=== PATIENT | male | born 1980 | race Caucasian/White ===

== ENCOUNTER 2019-10-23 12:18 | Emergency (ER) | payer OTHER, SELFPAY ==
[2019-10-23 12:28] VITALS: BP 147/102; PULSE 99; RESP 18; TEMP 37.5; O2SAT 98
--- NOTE | 2019-10-23 12:45 | ED.LOWEXIN ---
HPI - Extremity Injury (Lower) General Chief Complaint: Extremity Problem,Nontraumatic Stated Complaint: right ankle/foot pain Time Seen by Provider: 10/23/19 12:48 Source: patient and RN notes reviewed Mode of arrival: ambulatory Limitations: no limitations History of Present Illness HPI Narrative: 39-year-old male presents with concern for right dorsal foot and ankle pain, redness, warmth, tenderness without injury. Reports symptoms started 1 week ago. He has been using ibuprofen with little relief. Reports history of gout in the ankle. MD complaint: other (Ankle pain) Related Data Home Medications Medication Instructions Recorded Confirmed cholecalciferol (vitamin D3) 25 1,000 unit PO DAILY 04/26/19 mcg (1,000 unit) capsule fluticasone propionate 50 1 spray NASAL DAILY 04/26/19 mcg/actuation nasal spray,suspension irbesartan 150 mg tablet 150 mg PO DAILY 04/26/19 vilazodone 40 mg tablet 40 mg PO DAILY 04/26/19 Allergies Allergy/AdvReac Type Severity Reaction Status Date / Time levofloxacin Allergy Unknown Verified 02/10/18 15:50 Penicillins Allergy Unknown Difficulty Verified 03/02/19 13:53 breathing Sulfa (Sulfonamide Allergy Unknown Difficulty Verified 03/02/19 13:52 Antibiotics) breathing Review of Systems Review of Systems: Narrative: CONSTITUTIONAL: Denies malaise, chills, sweats, or fever. CARDIOVASCULAR: Denies chest pain, palpitations RESPIRATORY: Denies dyspnea. GASTROINTESTINAL: Denies abdominal pain, nausea, vomiting, diarrhea SKIN: Reports right ankle, dorsal foot redness, warmth. Denies calf redness, tenderness, pain, warmth MUSCULOSKELETAL: Reports right dorsal foot and ankle pain NEUROLOGIC: Denies numbness, weakness. All systems reviewed & are unremarkable except as noted in HPI and below PMFSH Social History Social History Smoking status: Never smoker Smoking end date: 06/08/12 Alcohol intake: current Comments At time of signature, agree with nursing past medical, surgical, social and family history. There is no relevant family history pertinent to the presenting complaint Exam Narrative: Exam Narrative: GENERAL: Well-appearing, well-nourished, and in no acute distress. HEAD: Normocephalic, atraumatic. EYES: PERRLA, conjunctivae clear NECK: Supple. CHEST: Speaks in full sentences. No respiratory distress. HEART: Regular rate and rhythm. Normal and equal peripheral pulses. EXTREMITIES: Right ankle, foot, digits have normal strength and sensation, normal range of motion. 5/5 strength with dorsiflexion plantarflexion, digit flexion and extension. Mild ankle dorsal foot edema with warmth, erythema, mildly tender to palpation. Normal sensation with sensitivity to light touch and pain. No open wounds, no skin tenting, no devitalized tissue or atrophy, no trophic changes, no ecchymosis, no obvious deformity, alignment normal, no point tenderness, nearby joints and structures intact. Distal pulses palpable and equal bilaterally, skin warm, dry, pink. Capillary refill less than 3 seconds. SKIN: Warm, dry, no rash. NEURO: Alert and oriented x3. PSYCH: Normal mood and affect Course Course Emergency Course: Patient is aware of diagnosis, understands and agrees to treatment plan. Anticipatory guidance given. Patient agrees to follow-up as directed and is aware of reasons to seek care at the emergency department. Portions of this record may have been created with voice recognition software Vital Signs Vital signs: Vital Signs Temperature 99.5 F 10/23/19 12:28 Pulse Rate 99 10/23/19 12:28 Respiratory Rate 18 10/23/19 12:28 Blood Pressure 147/102 H 10/23/19 12:28 Pulse Oximetry 98 10/23/19 12:28 Temperature 99.5 F 10/23/19 12:28 Pulse Rate 99 10/23/19 12:28 Respiratory Rate 18 10/23/19 12:28 Blood Pressure 147/102 H 10/23/19 12:28 Pulse Oximetry 98 10/23/19 12:28 Reviewed. Pt has been instructed to follow up with his primary care
== END 2019-10-23 13:04 | disposition home or self-care (01) ==
PROVIDERS: Emergency Provider Nurse Practitioner; PCP Family Medicine
DX: M10.9 Gout, unspecified (principal); I10 Essential (primary) hypertension
CPT/HCPCS: 99213; G0463

== ENCOUNTER 2021-12-17 18:21 | Emergency (ER) | payer OTHER, SELFPAY ==
[2021-12-17 18:25] VITALS: BP 137/89; PULSE 110; RESP 20; TEMP 36.8; O2SAT 98
--- NOTE | 2021-12-17 18:33 | ED.BACK ---
HPI - Back Pain/Injury General Chief Complaint: Back Pain/Injury Stated Complaint: Low Back Pain Time Seen by Provider: 12/17/21 18:34 Source: patient and RN notes reviewed History of Present Illness HPI Narrative: Patient is a 41-year-old male who presents the urgent care with complaints of left low back pain radiating to the buttocks at times and around to the groin. Patient states is been ongoing for approximately 3 weeks and his primary care told him to wait it out and see how it goes . Patient states that Thursday he ran a fever and was concerned that it may be something to do with kidney stones or urinary. Patient reports of history of diverticulitis but states he has not had any issues with that recently and denies any diarrhea or constipation. Patient denies of abdominal pain. States that he has been taking ibuprofen and Tylenol. No other acute complaints. No acute distress noted. Patient aware of the plan of care. Some parts of this dictation were generated by voice recognition software and may contain typographical and/or grammatical inaccuracies. Related Data Home Medications Medication Instructions Recorded Confirmed cholecalciferol (vitamin D3) 25 1,000 unit PO DAILY 04/26/19 12/17/21 mcg (1,000 unit) capsule Allergies Allergy/AdvReac Type Severity Reaction Status Date / Time Penicillins Allergy Intermediate Difficulty Verified 12/17/21 18:43 breathing Sulfa (Sulfonamide Allergy Intermediate Difficulty Verified 12/17/21 18:43 Antibiotics) breathing Review of Systems Review of Systems: CONSTITUTIONAL: Reports a fever and chills that have since resolved EYES: Denies visual changes, redness, or discharge. ENT: Denies rhinorrhea, congestion, sore throat, or otalgia. CARDIOVASCULAR: Denies chest pain, palpitations, or edema. RESPIRATORY: Denies cough or dyspnea. GASTROINTESTINAL: Denies abdominal pain, nausea, vomiting, or diarrhea. GENITOURINARY: Denies dysuria or hematuria. SKIN: Denies rash or itching. MUSCULOSKELETAL: Reports of left low back pain radiating to the left groin NEUROLOGIC: Denies headache, numbness, or weakness. All other systems reviewed are negative, except as documented in HPI. [facility] Past Medical History Medical History (Updated 12/17/21 @ 19:01 by ZIYAD Ireland) Abnormal fasting glucose Fasting glucose 110 with hemoglobin A1c 5.3 on 03/05/2021. Glucose 92 on 12/02/2021. Alcoholism with alcohol dependence BMI 39.0-39.9,adult Encounter for prostate cancer screening Social History Social History Smoking status: Never smoker Tobacco type: e-cigarettes/vaping Smoking end date: 06/08/12 Alcohol intake: current Drinks per week: 6 Alcohol use details: beer Substance use: never Substance use type: does not use Comments At the time of my signature, I reviewed and agree with the nursing past medical, surgical, social, and family history. There is no relevant family history pertinent to the patient complaint. Exam Narrative: GENERAL: This is a well-nourished, well-developed patient, in no apparent distress. HEAD: normocephalic, atraumatic. EYES: PERRL. Sclera clear/white. Vision is grossly intact. EARS: External ears normal NOSE: External nose normal with no obvious nasal discharge, nares without redness, no rhinorrhea. THROAT: Mucous membranes moist NECK: Neck supple CARDIOVASCULAR: Regular rate and rhythm without murmurs, gallops, or rubs. RESPIRATORY: Clear to auscultation. Breath sounds equal bilaterally. No wheezes, rales, or rhonchi. GASTROINTESTINAL: Abdomen soft, non-tender, nondistended. Bowel sounds are active. SKIN: warm, intact with no suspicious lesions or rash, good texture and turgor. NEURO: awake, alert, and oriented to person, place and time. There were no obvious focal neurologic abnormalities. EXTREMITIES: No clubbing, cyanosis, or edema. BACK: Mild right lumbar tendernes
== END 2021-12-17 19:05 | disposition home or self-care (01) ==
PROVIDERS: Emergency Provider Nurse Practitioner Family; PCP Family Medicine
DX: M54.32 Sciatica, left side (principal); F17.200 Nicotine dependence, unspecified, uncomplicated; F17.290 Nicotine dependence, other tobacco product, uncomplicated
CPT/HCPCS: 81003; 99213; G0463

== ENCOUNTER 2022-12-03 11:06 | Emergency (ER) | payer OTHER, SELFPAY ==
[2022-12-03 11:15] VITALS: BP 169/92; PULSE 82; RESP 16; TEMP 36.5; O2SAT 99
--- NOTE | 2022-12-03 11:20 | ED.LOWEXIN ---
HPI - Extremity Injury (Lower) General Chief Complaint: Extremity Injury, Lower Stated Complaint: Right ankle injury Time Seen by Provider: 12/03/22 11:20 Source: patient Mode of arrival: ambulatory Limitations: no limitations History of Present Illness HPI Narrative: 42-year-old male presents with pain to right ankle for approximately 2 weeks. Reports that he was walking backwards while carrying furniture and twisted right ankle. States pain was not that bad after the fall. He continued to go up and downstairs and carry other objects for the next 2 days as he was helping family move. He states every day the pain to right ankle got progressively worse. He continues to have swelling. Worse when ambulatory. Taking [id number] medications to treat pain. Has not seen primary care physician for this complaint. All systems reviewed and negative except as noted above. Related Data Allergies Allergy/AdvReac Type Severity Reaction Status Date / Time Penicillins Allergy Intermediate Difficulty Verified 12/03/22 11:21 breathing Sulfa (Sulfonamide Allergy Intermediate Difficulty Verified 12/03/22 11:21 Antibiotics) breathing Review of Systems Review of Systems: CONSTITUTIONAL: Denies fever, chills, or sweats. EYES: Denies visual changes, redness, or discharge. ENT: Denies rhinorrhea, congestion, sore throat, or otalgia. CARDIOVASCULAR: Denies chest pain, palpitations, or edema. RESPIRATORY: Denies cough or dyspnea. GASTROINTESTINAL: Denies abdominal pain, nausea, vomiting, or diarrhea. GENITOURINARY: Denies dysuria or hematuria. SKIN: Denies rash or itching. MUSCULOSKELETAL: Denies back pain. Reports pain and swelling to right ankle. NEUROLOGIC: Denies headache, numbness, or weakness. PSYCHIATRIC: Denies anxiety or depression. All other systems reviewed are negative, except as documented in HPI. [facility] Past Medical History Medical History (Updated 12/03/22 @ 11:44 by Audrey Lamar NP) Abnormal fasting glucose Fasting glucose 110 with hemoglobin A1c 5.3 on 03/05/2021. Glucose 92 on 12/02/2021. Acute low back pain with left-sided sciatica (~11/2021) urgent care visit 12/17/2021. Alcoholism with alcohol dependence BMI 39.0-39.9,adult Encounter for prostate cancer screening PSA 0.34 on 03/05/2021. Obesity (BMI 30-39.9) Social History Social History (Updated 06/12/22 @ 14:24 by Berna Sandy MA) Smoking status: Former smoker ( quit smoking 06/08/2012. Vaping currently) Tobacco type: e-cigarettes/vaping Smoking end date: 06/08/12 Alcohol intake: current Drinks per week: 6 Alcohol use details: beer Substance use: never Substance use type: does not use Lack of Transportation: No Lack of Food: Never True Current Housing: I Have Housing Concerned About Future Housing: No Difficulty Paying Gas/Electric Bills: No Difficulty Paying for Meds: No Currently Unemployed: No Education: Bachelor's Degree Difficulty w/ Childcare or Family Care: No Comments At time of signature, agree with nursing past medical, surgical, social and family history. There is no relevant family history pertinent to the presenting complaint. Exam Narrative: GENERAL: This is a well-nourished, well-developed patient, in no apparent distress. HEAD: normocephalic, atraumatic. EYES: PERRL. Sclera clear/white. Vision is grossly intact. EARS: External ears normal NOSE: External nose normal NECK: Neck supple, non-tender without lymphadenopathy, masses or thyromegaly. CARDIOVASCULAR: Regular rate and rhythm without murmurs, gallops, or rubs. RESPIRATORY: Clear to auscultation. Breath sounds equal bilaterally. No wheezes, rales, or rhonchi. SKIN: warm, Dry, intact with no suspicious lesions or rash, good texture and turgor. NEURO: awake, alert, and oriented to person, place and time. There were no obvious focal neurologic abnormalities. EXTREMITIES: Tenderness to lateral and medial aspect of
== END 2022-12-03 11:45 | disposition home or self-care (01) ==
PROVIDERS: Emergency Provider Nurse Practitioner Family; PCP Family Medicine
DX: S93.401A Sprain of unspecified ligament of right ankle, initial encounter (principal); X50.9XXA Other and unspecified overexertion or strenuous movements or postures, initial encounter; I10 Essential (primary) hypertension; F17.290 Nicotine dependence, other tobacco product, uncomplicated; E66.9 Obesity, unspecified; Z68.36 Body mass index [BMI] 36.0-36.9, adult
CPT/HCPCS: 73610; 99213; G0463

== ENCOUNTER 2024-07-01 13:16 | Emergency (ER) | payer OTHER, SELFPAY ==
--- NOTE | ~2024-07-01 | XR_ITS ---
EXAMINATION: XR lumbar spine min 4V DATE: 07/01/2024 14:33 INDICATION: Low back pain. TECHNIQUE: 5 views of lumbar spine were obtained. COMPARISON: CT abdomen and pelvis 02/24/2018 FINDINGS: There is 7 degrees levocurvature of lumbar spine. There is mild chronic anterior wedging of T11 vertebral body. There is mildly decreased disc height at L1-L2, L2-L3, and L3-L4. There is multi level facet joint osteoarthritis, severe in lower lumbar spine. IMPRESSION: 1. Mild lumbar spondylosis. Reviewed, dictated and finalized at location B. SETTER IMPRESSION: 1. Mild lumbar spondylosis.
[2024-07-01 13:21] VITALS: BP 158/102; PULSE 92; RESP 16; TEMP 37.2; O2SAT 98
--- NOTE | 2024-07-01 14:12 | ED_ITS ---
HPI - Back Pain/Injury General Chief Complaint: Back Pain/Injury Stated Complaint: Back Pain Time Seen by Provider: 07/01/24 13:45 Source: patient, RN notes reviewed and old records reviewed Mode of arrival: ambulatory Limitations: no limitations History of Present Illness HPI Narrative: 44 year old male who presents to [facility] care with complaints of lower back pain all across lumbar region starting on Thursday 4 days ago. Patient reports no known injury to back states that he has had previous back pain episodes in the past. Patient reports that he has had sciatica in the past but pain is not radiating down his legs today.Patient denies any bowel or bladder abnormality, denies any saddle paraesthesia.Patient reports that he has been taking Ibuprofen and Tylenol for his pain with little relief. 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 MD elicited complaint: back pain Pertinent past history: prior back pain Onset (ago): day(s) (4) Severity: moderate Similar Symptoms Previously: Yes Location: lumbar spine Radiation: none Exacerbating factors: walking Treatments prior to arrival: NSAIDS and acetaminophen Related Data Home Medications ?Medication ?Instructions ?Recorded ?Confirmed ?Last Taken ?Type cyanocobalamin (vitamin B-12) 1,000 mcg PO DAILY 07/06/23 01/19/24 Unknown History 1,000 mcg tablet Allergies Allergy/AdvReac Type Severity Reaction Status Date / Time Penicillins Allergy Intermediate Difficulty Verified 12/03/22 11:21 breathing Sulfa (Sulfonamide Allergy Intermediate Difficulty Verified 12/03/22 11:21 Antibiotics) breathing Review of Systems Review of Systems: CONSTITUTIONAL: Denies fever, chills, or sweats. EYES: Denies visual changes, redness, or discharge. ENT: Denies rhinorrhea, congestion, sore throat, or otalgia. CARDIOVASCULAR: Denies chest pain, palpitations, or edema. RESPIRATORY: Denies cough or dyspnea. GASTROINTESTINAL: Denies abdominal pain, nausea, vomiting, or diarrhea. GENITOURINARY: Denies dysuria or hematuria. SKIN: Denies rash or itching. MUSCULOSKELETAL: reports lumbar back across the lumbar back , or myalgia. NEUROLOGIC: Denies headache, numbness, or weakness. PSYCHIATRIC: Reports history of anxiety or depression. All systems reviewed & are unremarkable except as noted in HPI and below PMFSH Past Medical History Medical History BMI 35.0-35.9,adult Chronic low back pain with left-sided sciatica (~11/2021) x-ray of the lumbar spine on 07/01/2024 reveals mild degenerative disc disease and moderate to severe facet arthritis in the lower lumbar region. BMI 37.0-37.9, adult Ganglion cyst (~2022) 3 mm cyst flexor surface left wrist radial aspect. 1 cm cyst extensor surface left foot over 2nd metatarsal. Hypersomnia (~2022) Folic acid deficiency (12/02/22) level low at 5.3 on 12/02/2022. level normal at greater than 20 on 07/01/2023. Vitamin B12 deficiency (12/02/22) level low at 394 with goal greater than 400 with hemoglobin 14.4 on 12/02/2022. Level normal at 428 on 07/01/2023. Obesity (BMI 30-39.9) Acute low back pain with left-sided sciatica (~11/2021) urgent care visit 12/17/2021. Abnormal fasting glucose Fasting glucose 110 with hemoglobin A1c 5.3 on 03/05/2021. Glucose 92 on 12/02/2021. Fasting glucose 95 on 07/01/2023. glucose 92 with hemoglobin A1c 5.5 on 12/28/2023. Alcoholism with alcohol dependence BMI 39.0-39.9,adult Encounter for prostate cancer screening PSA 0.34 on 03/05/2021. PSA 0.3 on 12/02/2022. PSA 0.47 on 12/28/2023. Surgical History Surgical History (Updated 07/02/24 @ 10:44 by Sari Villalobos NP) H/O left knee surgery Social History Social History (Updated 07/02/24 @ 10:45 by Sari Villalobos NP) Smoking status: Former smoker ( quit smoking 06/08/2012. Vaping currently) Smoking end date: 06/08/12 Alcohol intake: current Drinks per week: 3 Alcohol use details: cocktail Substance use: never Substance use type: does not use Lack of Transportation: No Lack of Food: Never True Current Housing: I Have Housing Concerned About Future Housing: No Difficulty Paying Gas/Electric Bills: No Difficulty Paying for Meds: No Currently Unemployed: No Education: Bachelor's Degree Difficulty w/ Childcare or Family Care: No Gender identity (if verbalized by the patient): Male Comments At time of signature, agree with nursing past medical, surgical, social and family history. There is no relevant family history pertinent to the presenting complaint Exam Narrative: GENERAL: Well-appearing, well-nourished, and in some acute distress. HEAD: Normocephalic, atraumatic. EYES: PERRLA and EOMI. ENT: Nares clear, no rhinorrhea or epistaxis. Mucous membranes moist.TM's normal throat pink with no swelling NECK: Supple. no lymphadenopathy CHEST: Clear to auscultation. No respiratory distress.SAO2 98% on room air HEART: Regular rate and rhythm. No murmur heard. Normal peripheral pulses. ABDOMEN: Soft, nontender, nondistended, normal active bowel sounds. EXTREMITIES: Normal range of motion. No edema. Pack pain across lower back with no radiation to legs or buttocks, denies any bowel or bladder dysfunction or any saddle paraesthesia, discomfort SI region on palpation, increased pain with ambulation and changing positions. SKIN: Warm, dry, no rash. NEURO: No focal deficits. Alert and oriented x3. Course Course Emergency Course: Patient is aware of diagnosis, understands and agrees to treatment plan.? Anticipatory guidance given.? Patient agrees to follow-up as directed and is aware of reasons to seek care at the emergency department. Portions of this record may have been created with voice recognition software Level of Care: Express Care Visit Vital Signs Vital signs: Vital Signs Temperature 37.2 C 07/01/24 13:21 Pulse Rate 92 07/01/24 13:21 Respiratory Rate 16 07/01/24 13:21 Blood Pressure 158/102 H 07/01/24 13:21 Pulse Oximetry 98 07/01/24 13:21 Oxygen Delivery Room Air 07/01/24 13:21 Temperature 37.2 C 07/01/24 13:21 Pulse Rate 92 07/01/24 13:21 Respiratory Rate 16 07/01/24 13:21 Blood Pressure 158/102 H 07/01/24 13:21 Pulse Oximetry 98 07/01/24 13:21 Oxygen Delivery Room Air 07/01/24 13:21 Reviewed MDM - Back Pain/Injury Differential Diagnosis Differential diagnosis: Likely strain of lumbar region and other (lumbar back pain, SI joint tenderness, osteoarthritis lumbar spine) Medical Records Attestation: I reviewed the patient's medical records. Imaging Data My impression: mild lumbar spondylosis mild chronic anterior wedging of T11, decreased disc height at L1-4 multilevel facet joint osteoarthritis. Radiologist's impression: [facility] [address] [place] [address] XRay Report Signed Patient: Mal Chow : 1980 MR#: [id number] Age: 44 Acct:[id number] Loc: [facility] ADM Date: 07/01/24Attending Dr: Ordering Physician: Sari Villalobos APRN Date of Service: 07/01/24 Procedure(s): XR lumbar spine min 4V Accession Number(s): [id number] cc: Jose Kaur MD; Sari Villalobos APRN~ EXAMINATION: XR lumbar spine min 4V DATE: 07/01/2024 14:33 INDICATION: Low back pain. TECHNIQUE: 5 views of lumbar spine were obtained. COMPARISON: CT abdomen and pelvis 02/24/2018 FINDINGS: There is 7 degrees levocurvature of lumbar spine. There is mild chronic anterior wedging of T11 vertebral body. There is mildly decreased disc height at L1-L2, L2-L3, and L3-L4. There is multilevel facet joint osteoarthritis, severe in lower lumbar spine. IMPRESSION: 1. Mild lumbar spondylosis. Reviewed, dictated and finalized at location B. IN CLEANER Please be advised this is a medical document. It is intended for [id number] communication. It is written in medical language and may contain unfamiliar abbreviations or verbiage. Medical documents are intended to carry relevant information, facts as evident, and the clinical opinion of the practitioner at the time of the encounter. This report may have been done utilizing a voice recognition system. Attempts have been made to correct errors. However, there may be uncorrected grammatical, spelling, and recognition errors present. The file time of this note does not necessarily represent the time of service. Dictated By: Alfredo Dawson MD 07/01/24 1434 Signed By: <Electronically signed by Alfredo Dawson MD in OV> Critical Care Time Critical Care Time Critical Care Time: No Discharge Plan Discharge Clinical Impression: Lumbar back pain Patient Disposition: Home, Self-Care Condition: Stable Instructions: Antibiotic Form, Acute Low Back Pain (ED) Additional Instructions: Ice and heat to the area for 20-30 minutes Gentle stretching exercises Gentle massage Caution with lifting, bending, stooping, twisting Avoid pushing, pulling take muscle relaxants as directed--caution drowsiness and no driving or alcohol Anti-inflammatory medicine as directed--take with food alternate Tylenol and ibuprofen He may take the muscle relaxant and anti-inflammatory at the same time Call Dr. Kaur practice on Thursday for follow-up appointment If your symptoms persist, change or worsen significantly before you can contact your personal physician then please, without delay, go to the emergency department for further evaluation. Follow-up with PCP in 7-10 days or sooner if needed Follow up with PCP soon in regards to your blood pressure which is elevated above threshold for referral. Blood pressure above 120/80 may indicate pre- hypertension.158/102 Patient Language: [place] Citizen Prescriptions: New prednisone 20 mg tablet 20 mg PO BID Qty: 10 0RF Rx Instructions: with food take am and early evening before 6pm cyclobenzaprine 10 mg tablet 10 mg PO TID PRN (Reason: muscle spasm) Qty: 20 0RF Rx Instructions: Can not drive or operate machinery when taking and no alcohol No Action cyanocobalamin (vitamin B-12) 1,000 mcg tablet 1,000 mcg PO DAILY amlodipine 5 mg tablet 5 mg PO DAILY Qty: 90 3RF atorvastatin 20 mg tablet 20 mg PO DAILY Qty: 30 11RF folic acid 1 mg tablet 1 mg PO DAILY Qty: 30 11RF Viibryd 40 mg tablet 40 mg PO DAILY Qty: 30 11RF irbesartan 300 mg tablet 300 mg PO DAILY Qty: 90 3RF Follow-up/Referrals: Jose Kaur MD [Primary Care Provider] - Time of Disposition: 14:56 Quality Kandy Coma Scale Eyes: Open Verbal: Oriented and Alert Motor: Follows Commands Kandy Coma Total Score: 15
== END 2024-07-01 15:02 | disposition home or self-care (01) ==
PROVIDERS: Emergency Provider Registered Nurse; PCP Family Medicine
DX: M54.50 Low back pain, unspecified (principal); E53.8 Deficiency of other specified B group vitamins; Z87.891 Personal history of nicotine dependence
CPT/HCPCS: 72110; 99213; G0463

== ENCOUNTER 2024-07-22 09:04 | Outpatient (CLI) | payer OTHER, SELFPAY ==
--- NOTE | ~2024-07-22 | US_ITS ---
EXAM: Focused ultrasound examination of the soft tissues of the left popliteal fossa HISTORY: L knee pain TECHNIQUE: Sonographic evaluation of the soft tissues of the left popliteal fossa were performed asse ssing grayscale appearance and color Doppler flow. COMPARISON: None. FINDINGS: Within the area of clinical concern is an avascular anechoic focus measuring 7.9 x 2.3 x 4.3 cm, cons istent with a Soto's cyst. Avascular septations are present. Internal debris is noted. Sonographic evaluation of the remainder of the soft tissues of the left popliteal fossa demonstrate b enign fibrofatty and fibromuscular elements without a cystic or solid lesion of concern. IMPRESSION: Findings within the left popliteal fossa consistent with a Soto's cyst, as detailed above. Reviewed, dictated and finalized at location A. ING SUPERVISOR IMPRESSION: Findings within the left popliteal fossa consistent with a Soto's cyst, as det christie above.
--- NOTE | ~2024-07-22 | MR_ITS ---
EXAMINATION: MR lumbar spine wo con DATE: 07/22/2024 09:34 INDICATION: Lumbago. TECHNIQUE: Magnetic resonance imaging (MRI) of the lumbar spine was performed without intravenous con trast. Sequences included sagittal T2-weighted FSE, sagittal T2-weighted FS FSE, sagittal T1-weighted FSE, and axial T2-weighted FSE. COMPARISON: Lumbar spine radiographs 07/01/2024 FINDINGS: There is a degrees levocurvature of lumbar spine. There is 3 mm retrolisthesis of L2 on L3. There is mild chronic anterior wedging of T12 and L1 vertebral bodies. There are Schmorl's nodes at multiple levels. There is mildly decreased disc height at L1-L2, L2-L3, L3-L4, and L4-L5. The distal spinal cord signal intensity is normal. The conus medullaris is at T12-L1. The following disc levels are specifically discussed: L1-L2: The disc is bulging and has an annular fissure. There is severe right and moderate left facet joint osteoarthritis. There is mild left neural foraminal stenosis. There is mild central canal steno sis. L2-L3: The disc is bulging and has an annular fissure. There is severe bilateral facet joint osteoart hritis. There is mild bilateral neural foraminal stenosis. There is moderate central canal stenosis. L3-L4: The disc is bulging and has an annular fissure. There is severe bilateral facet joint osteoart hritis. There is mild right and moderate left neural foraminal stenosis. There is mild central canal stenosis. L4-L5: The disc is bulging and has an annular fissure. There is severe bilateral facet joint osteoart hritis. There is moderate bilateral neural foraminal stenosis. There is mild central canal stenosis. L5-S1: The disc does not extend beyond the endplate margin. There is severe bilateral facet joint ost eoarthritis. There is no neural foraminal stenosis. There is no central canal stenosis. IMPRESSION: 1. Moderate lumbar spondylosis. Reviewed, dictated and finalized at location A. [employer]
== END 2024-07-22 09:05 | disposition home or self-care (01) ==
LOC: MICIMG 09:05
PROVIDERS: PCP Family Medicine; Visit Provider Nurse Practitioner Family
DX: M25.562 Pain in left knee (principal); M47.896 Other spondylosis, lumbar region
CPT/HCPCS: 72148; 76882